=== PATIENT | male | born 1950 | race African-American/Black ===

== ENCOUNTER 2016-06-02 14:18 | Emergency (ER) | payer OTHER ==
[~2016-06-02] VITALS: Ht 177.8 cm; Wt 77.1 kg
[~2016-06-02 14:18] MED LIST: ALPRAZOLAM ER1 MG PO; BUPROPION HCL200 MG PO; DIAZEPAM 10 MG10 M2 PO; ESZOPICLONE3 MG PO; HYDROCORTISONE30 G9 RECTAL; NORCO 5-325 TA1 EACH PO; PROCTOCREAM-HC30 GM RC; QUETIAPINE FUM200 MG PO; RESTORIL30 MG PO; SENOKOT-S1 TA1 PO
[2016-06-02 14:19] VITALS: BP 111/69
[2016-06-02] MEDS ORDERED: ANUSOL-HC25 MG RECTAL (14:45)
[2016-06-02] MEDS ORDERED: IBUPROFEN 600600 M1 PO (14:45)
== END 2016-06-02 15:08 | disposition home or self-care (01) ==
LOC: ER 14:18
DX: K64.9 Unspecified hemorrhoids (principal); Z76.0 Encounter for issue of repeat prescription